=== PATIENT | female | born 1990 | race Caucasian/White ===

== ENCOUNTER → 2017-02-28 | Outpatient (REF) | payer OTHER | LOC: M SFHCWAGY 15:21 | PROVIDERS: ATTEND Family Medicine | DX: Z11.3 Encounter for screening for infections with a predominantly sexual mode of transmission (principal); Z12.4 Encounter for screening for malignant neoplasm of cervix; R87.615 Unsatisfactory cytologic smear of cervix | CPT/HCPCS: 87491; 87591; G0123 ==

== ENCOUNTER → 2017-07-08 | Outpatient (CLI) | payer OTHER ==
[2017-07-08 13:53] LABS: BASO % 0.3 % (0.0-1.0); EOS # 0.2 K/mm3 (0.0-0.50); EOS % 2.4 % (0.0-3.0); LARGE UNSTAINED CELL # 0.1 K/mm3 (0.0-0.4); LARGE UNSTAINED CELL % 1.8 % (0.0-4.0); LYMPH # 1.7 K/mm3 (1.5-6.5); LYMPH % 23.1 % (24.0-44.0); MEAN CORPUSCULAR HEMOGLOBIN 32.6 pg (27.0-33.0); MEAN CORPUSCULAR HGB CONC 34.4 g/dl (32.0-36.5); MEAN CORPUSCULAR VOLUME 94.8 fl (80.0-96.0); MONO # 0.4 K/mm3 (0.0-0.8); MONO % 6.2 % (0.0-5.0); NEUTROPHILS # 4.6 K/mm3 (1.8-7.7); NEUTROPHILS % 66.2 % (36.0-66.0); PLATELET COUNT, AUTOMATED 255 k/mm3 (150-450); RED CELL DISTRIBUTION WIDTH 12.3 % (11.5-14.5); WHITE BLOOD COUNT 6.9 K/mm3 (4.0-10.0)
[2017-07-09 11:26] LABS: HBsAg Prenatal NEGATIVE (NEGATIVE)
== END ==
LOC: M SMT 10:41
PROVIDERS: ATTEND Advanced Practice Midwife
DX: Z36 Encounter for antenatal screening of mother (principal); Z34.81 Encounter for supervision of other normal pregnancy, first trimester

== ENCOUNTER → 2017-12-10 | Outpatient (CLI) | payer OTHER ==
[2017-12-10 19:17] LABS: BASO % 0.2 % (0.0-1.0); EOS # 0.2 10^3/uL (0.0-0.50); EOS % 1.8 % (0.0-3.0); HEMATOCRIT 37.7 % (36.0-47.0); HEMOGLOBIN 12.7 g/dl (12.0-16.0); IMMATURE GRANULOCYTE % 0.3 % (0-0); LYMPH # 1.8 10^3/uL (1.5-6.5); LYMPH % 15.6 % (24.0-44.0); MEAN CORPUSCULAR HEMOGLOBIN 32.5 pg (27.0-33.0); MEAN CORPUSCULAR HGB CONC 33.7 g/dl (32.0-36.5); MEAN CORPUSCULAR VOLUME 96.4 fl (80.0-96.0); MONO # 0.7 10^3/uL (0.0-0.8); MONO % 6.3 % (0.0-5.0); NEUTROPHILS # 8.6 10^3/uL (1.8-7.7); NEUTROPHILS % 75.8 % (36.0-66.0); PLATELET COUNT, AUTOMATED 276 10^3/uL (150-450); RED BLOOD COUNT 3.91 10^6/uL (4.00-5.40); RED CELL DISTRIBUTION WIDTH 12.1 % (11.5-14.5); WHITE BLOOD COUNT 11.4 10^3/uL (4.0-10.0)
[2017-12-10 20:16] LABS: GLUCOSE CHALLENGE TEST 1 HOUR 110 MG/DL (LESS THAN 140)
== END ==
LOC: M SMT 13:15
DX: Z34.83 Encounter for supervision of other normal pregnancy, third trimester (principal); Z36.89 Encounter for other specified antenatal screening
CPT/HCPCS: 82950

== ENCOUNTER → 2018-01-01 | Outpatient (CLI) | payer OTHER | LOC: M SMT 14:41 | DX: O26.843 Uterine size-date discrepancy, third trimester (principal); Z3A.33 33 weeks gestation of pregnancy | CPT/HCPCS: 76815 ==

== ENCOUNTER → 2018-01-23 | Outpatient (REF) | payer OTHER | LOC: M LAB REF 16:58 | DX: Z34.83 Encounter for supervision of other normal pregnancy, third trimester (principal) ==

== ENCOUNTER 2018-02-23 09:57 | Inpatient (IN) | payer OTHER ==
[2018-02-23] MEDS: miSOPROStol 50 MCG 1/2 TAB (S0191) SL (11:24)
[2018-02-23 11:35] LABS: HEMATOCRIT 35.8 % (36.0-47.0); HEMOGLOBIN 12.5 g/dl (12.0-16.0); MEAN CORPUSCULAR HGB CONC 34.9 g/dl (32.0-36.5); MEAN CORPUSCULAR VOLUME 91.6 fl (80.0-96.0); PLATELET COUNT, AUTOMATED 238 10^3/uL (150-450); RED BLOOD COUNT 3.91 10^6/uL (4.00-5.40); RED CELL DISTRIBUTION WIDTH 12.5 % (11.5-14.5); WHITE BLOOD COUNT 9.3 10^3/uL (4.0-10.0)
[2018-02-23 11:55] LABS: AMPHETAMINES URINE REFLEX NEGATIVE (NEGATIVE); BARBITURATES URINE REFLEX NEGATIVE (NEGATIVE); BENZODIAZEPINES URINE REFLEX NEGATIVE (NEGATIVE); CANNABINOIDS URINE REFLEX NEGATIVE (NEGATIVE); COCAINE METABOLITE URINE REFLE NEGATIVE (NEGATIVE); METHADONE URINE REFLEX NEGATIVE (NEGATIVE); OPIATES URINE REFLEX NEGATIVE (NEGATIVE); PHENCYCLIDINE URINE REFLEX NEGATIVE (NEGATIVE)
[2018-02-23] MEDS ORDERED: FENTANYL 2MCG/ML ROPIVACAINE 0.2% IN 0.9% NACL 200ML IVBAG As Ordered (15:39)
[2018-02-23] MEDS ORDERED: LR 1,000 ML IV (16:12)
[2018-02-23] MEDS: LACTATED RINGER'S 1000 ML IV (16:12)
[2018-02-23] MEDS ORDERED: OXYTOCIN 30 UNITS IN 0.9% NaCl 500ML IV BAG (J2590) As Ordered (16:53)
[2018-02-23] MEDS ORDERED: ONDANSETRON 4MG/2ML VIAL (J2405) IV ×2 (18:30→19:15)
[2018-02-23] MEDS ORDERED: DOCUSATE SODIUM 100 MG CAP PO (18:30)
[2018-02-23] MEDS ORDERED: METHYLERGONOVINE MALEATE 0.2 MG TAB PO (18:30)
[2018-02-23] MEDS ORDERED: DIBUCAINE 1% OINTMENT 30GM TOP (18:30)
[2018-02-23] MEDS: OXYTOCIN DRIP 30 UNITS in APPROPRIATE DILUENT 1 EA IV (18:30)
[2018-02-23 18:38] LABS: CORD GAS ABE A -4.5; CORD GAS ABE V -4.9; CORD GAS HCO3 V 21.2 MEQ/L; CORD GAS O2 SAT A < 15.0 %; CORD GAS O2 SAT V 46.1 %; CORD GAS PCO2 A 64.6 mmHg; CORD GAS PCO2 V 42.9 mmHg; CORD GAS PH A 7.205 UNITS; CORD GAS PH V 7.312 UNITS; CORD GAS PO2 A < 10.0 mmHg; CORD GAS PO2 V 24.2 mmHg; CORD GAS SBC V 19.2 MEQ/L; CORD GAS TCO2 V 22.5 MEQ/L
[2018-02-23] MEDS ORDERED: ePHEDrine SULFATE 25 MG/5 ML(5MG/ML) SYRINGE IV (19:15)
[2018-02-23] MEDS ORDERED: EPIDURAL/PCA KEYS XX (19:15)
[2018-02-23] MEDS ORDERED: NALOXONE INJ 0.4 MG/1 ML VIAL (J2310) IV (19:15)
[2018-02-23] MEDS ORDERED: REFRIGERATOR IV KEYS XX (19:15)
[2018-02-23] MEDS ORDERED: LACTATED RINGER'S 1000 ML IV (19:15)
[2018-02-23] MEDS ORDERED: EPIDURAL COMMENT XX (19:15)
[2018-02-23] MEDS ORDERED: diphenhydrAMINE INJ 50MG/ML VIAL (J1200) IV (19:15)
[2018-02-23] MEDS: MEASLES,MUMPS,RUBELLA VACCINE INJ (MMR-II) (90707) SC (20:38)
[2018-02-23] MEDS: RHOGAM 300 MCG (1500 IU) INJ (J2790) IM (20:39)
[2018-02-23] MEDS: IBUPROFEN 800 MG TAB PO (20:45)
[2018-02-23] MEDS: FENTANYL/ROPIVACAINE/NACL BAG 200 ML EPIDURAL (20:52)
[2018-02-24] MEDS: ACETAMINOPHEN 500 MG TAB PO ×2 (01:04→22:06)
[2018-02-24] MEDS: PRENATAL VITAMINS CHEWABLE TABLET PO (09:00)
[2018-02-24] MEDS: IBUPROFEN 800 MG TAB PO ×2 (09:01→15:55)
[2018-02-25] MEDS: IBUPROFEN 800 MG TAB PO ×2 (05:21→13:08)
[2018-02-25] MEDS: ACETAMINOPHEN 500 MG TAB PO ×2 (05:21→13:08)
[2018-02-25] MEDS: PRENATAL VITAMINS CHEWABLE TABLET PO (09:06)
== END 2018-02-25 13:40 | disposition home or self-care (01) | DRG 775 ==
LOC: M LDI 09:57 → M OBS 20:21
PROVIDERS: Specialist
PROC: 10D07Z3 Extraction of Products of Conception, Low Forceps, Via Natural or Artificial Opening (ICD-10-PCS; principal; 2018-02-23)
PROC: 3E0P7GC Introduction of Other Therapeutic Substance into Female Reproductive, Via Natural or Artificial Opening (ICD-10-PCS; 2018-02-23)
PROC: 0KQM0ZZ Repair Perineum Muscle, Open Approach (ICD-10-PCS; 2018-02-25)
DX: O48.0 Post-term pregnancy (principal); Z3A.41 41 weeks gestation of pregnancy; O76 Abnormality in fetal heart rate and rhythm complicating labor and delivery; O69.81X0 Labor and delivery complicated by cord around neck, without compression, not applicable or unspecified; O70.1 Second degree perineal laceration during delivery; Z37.0 Single live birth

== ENCOUNTER 2018-02-26 13:50 | Emergency (ER) | payer OTHER ==
[2018-02-26 13:59] LABS: HEMOGLOBIN 12.6 g/dl (12.0-15.5); MEAN CORPUSCULAR HEMOGLOBIN 32.4 pg (27.0-33.0); MEAN CORPUSCULAR HGB CONC 34.1 g/dl (32.0-36.5); MEAN CORPUSCULAR VOLUME 95.1 fl (80.0-96.0); PLATELET COUNT, AUTOMATED 235 10^3/uL (150-450); RED BLOOD COUNT 3.89 10^6/uL (4.00-5.40); WHITE BLOOD COUNT 10.6 10^3/uL (4.0-10.0)
[2018-02-26] MEDS: NS 1,000 ML IV (14:06)
[2018-02-26] MEDS: diphenhydrAMINE INJ 50MG/ML VIAL (J1200) IV (14:06)
[2018-02-26] MEDS: METOCLOPRAMIDE INJ 10MG/2ML VIAL (J2765) IV (14:06)
[2018-02-26 14:22] LABS: ANION GAP 7 MEQ/L (8-16); BLOOD UREA NITROGEN 10 MG/DL (7-18); CALCIUM LEVEL 8.6 MG/DL (8.5-10.1); CARBON DIOXIDE LEVEL 25 MEQ/L (21-32); CHLORIDE LEVEL 110 MEQ/L (98-107); CREATININE FOR GFR 0.56 MG/DL (0.55-1.30); GLOMERULAR FILTRATION RATE > 60.0 (>60); GLUCOSE, FASTING 77 MG/DL (70-100); POTASSIUM SERUM 3.6 MEQ/L (3.5-5.1); SODIUM LEVEL 142 MEQ/L (136-145)
[2018-02-26] MEDS: PERCOCET 5MG/325MG TAB PO (15:07)
== END 2018-02-26 16:50 | disposition home or self-care (01) ==
LOC: M ED 13:50
DX: O89.4 Spinal and epidural anesthesia-induced headache during the puerperium (principal); Z79.899 Other long term (current) drug therapy
CPT/HCPCS: J1200

== ENCOUNTER 2018-02-26 17:01 | Outpatient (CLI) | payer OTHER | END 2018-02-26 20:05 | disposition home or self-care (01) | LOC: M RROUT 17:01 | DX: G97.0 Cerebrospinal fluid leak from spinal puncture (principal) | CPT/HCPCS: 62273 ==

== ENCOUNTER → 2018-06-19 | Outpatient (REF) | payer OTHER | LOC: M LAB REF 14:28 | DX: Z12.4 Encounter for screening for malignant neoplasm of cervix (principal) ==

== ENCOUNTER → 2020-10-10 | Outpatient (REF) | payer OTHER ==
[~2020-10-10] MED LIST: IBUP-1114 PO; MAPA500T2 PO; PRENTAB9 PO; TUMS500C PO; ZANTTAB9 PO
[2020-10-10 16:01] LABS: HEMATOCRIT 39.2 % (36.0-47.0); HEMOGLOBIN 12.9 g/dl (12.0-15.5); MEAN CORPUSCULAR HGB CONC 32.9 g/dl (32.0-36.5); MEAN CORPUSCULAR VOLUME 94.2 fl (80.0-96.0); PLATELET COUNT, AUTOMATED 273 10^3/uL (150-450); RED BLOOD COUNT 4.16 10^6/uL (4.00-5.40); WHITE BLOOD COUNT 9.1 10^3/uL (4.0-10.0)
[2020-10-10 17:19] LABS: HEPATITIS C VIRUS ABY INDEX 0.1 INDEX (<0.8); HIV 1&2 SCREEN CENTAUR NEGATIVE (NEGATIVE)
== END ==
LOC: M PLALAB 13:53
PROVIDERS: ATTEND Advanced Practice Midwife
DX: Z34.91 Encounter for supervision of normal pregnancy, unspecified, first trimester (principal)

== ENCOUNTER → 2020-12-12 | Outpatient (CLI) | payer OTHER ==
--- NOTE | 2020-12-12 20:52 | REP ---
INDICATION: ANATOMY COMPARISON: None. TECHNIQUE: Transabdominal obstetrical ultrasound with color Doppler evaluation. FINDINGS: Examination demonstrates a single live intrauterine in cephalic presentation. motion is identified by technologist. Placenta is noted posterior and grade 1 without evidence for placenta previa or abruption. Amniotic fluid volume is normal. Cervix measures 3.1 cm in length and appears closed.. Gestational age by current measurements 19 weeks 4 days with CAREY 05/04/2021. FHR equals 153 beats per minute. BPD: 4.3 cm 19 weeks 0 days HC: 16.3 cm 19 weeks 0 days AC: 14.5 cm 19 weeks 5 days FL: 3.3 cm 20 weeks 1 day HL: 3.0 cm there is 19 weeks 5 days HC/AC: 1.12 Estimated weight 316 grams (18thpercentile). Anatomical assessment demonstrates normal structures including cranium, choroid plexus, cavum, cerebellum/posterior fossa, facial features, lungs, diaphragm, stomach, cord insertion/three-vessel cord, kidneys/bladder, spine, and extremities. IMPRESSION: Single live intrauterine in cephalic presentation demonstrating appropriate estimated weight. Limited evaluation of the heart and ventricular outflow tracts due to positioning. Anatomical assessment is otherwise complete and normal. <Electronically signed by Chris Vinson > 12/12/20 [id number]
== END ==
LOC: M WHC 14:21
PROVIDERS: ATTEND Obstetrics & Gynecology
DX: Z34.82 Encounter for supervision of other normal pregnancy, second trimester (principal)

== ENCOUNTER → 2021-01-26 | Outpatient (CLI) | payer OTHER ==
--- NOTE | 2021-01-26 17:27 | REP ---
INDICATION: F/U ANATOMY. COMPARISON: Comparison study 12 December 2020.. TECHNIQUE: Transabdominal obstetric sonography. FINDINGS: Scanning through the gravid uterus demonstrates a viable single intrauterine gestation in breech lie. motion is observed and heart rate is recorded at 156 beats per minute. A posterior placenta is seen, grade 2, without evidence of placenta previa. Cervix is not well seen.. No extrauterine abnormality is observed. Amniotic fluid is subjectively decreased. STACIE 10.3 cm (9.522.6 cm (. An echogenic focus is again visualized within the left ventricle, likely chordee tract tendineae.. Biometry chart: BPD 5.9 cm, 24 weeks 1 day Head circumference 23.2 cm, 25 weeks 1 day Abdominal circumference 21.0 cm, 25 weeks 4 days Femur length 4.6 cm, 25 weeks 3 days Humeral length 4.4 cm, 26 weeks 1 day HC AC ratio normal 1.10 Cephalic index 0.69 (0.70-0.86) Estimated weight 804 g, 1 lb 12 oz, less than 3rd percentile for 26 weeks 6 days IMPRESSION: Viable single intrauterine gestation at 25 weeks 2 days by today's composite sonographic criteria. CAREY by today's sonography May 09, 2021. No complication identified. Expected gestational age estimate based on prior sonography is 26 weeks 6 days, CAREY April 28, 2021. Estimated weight less than 3rd percentile subjectively decreased amniotic fluid. <Electronically signed by Rick Cristina > 01/26/21 [id number]
== END ==
LOC: M WHC 14:51
PROVIDERS: ATTEND Obstetrics & Gynecology
DX: Z34.92 Encounter for supervision of normal pregnancy, unspecified, second trimester (principal); Z3A.25 25 weeks gestation of pregnancy

== ENCOUNTER → 2021-02-01 | Outpatient (REF) | payer OTHER ==
[2021-02-05 15:06] LABS: ANTI PARVO VIRUS LEVEL IGG 6.8 index (0.0-0.8); ANTI PARVO VIRUS LEVEL IgM 0.4 index (0.0-0.8); CYTOMEGALOVIRUS IgG ANTIBODY <0.60 U/mL (0.00-0.59); CYTOMEGALOVIRUS IgM ANTIBODY <30.0 AU/mL (0.0-29.9); HERPES ZOSTER, VARICELLA IgG 879 index (Immune >165); HERPES ZOSTER, VARICELLA IgM <0.91 index (0.00-0.90); HSV TYPE I IgG SPECIFIC <0.91 index (0.00-0.90); HSV TYPE I IgM AB <1:10 titer (<1:10); HSV TYPE II IgG SPECIFIC <0.91 index (0.00-0.90); HSV TYPE II IgM ABY <1:10 titer (<1:10); RUBELLA IgG FOR TORCH EVAL 2.47 index (Immune >0.99)
== END ==
LOC: M PLALAB 15:48
PROVIDERS: ATTEND Obstetrics & Gynecology
DX: O36.5920 Maternal care for other known or suspected poor fetal growth, second trimester, not applicable or unspecified (principal)

== ENCOUNTER → 2021-02-01 | Outpatient (CLI) | payer OTHER ==
--- NOTE | 2021-02-01 16:32 | REP ---
INDICATION: POOR GROWTH/BPP COMPARISON: 01/26/2021 TECHNIQUE: Transabdominal obstetrical ultrasound with color Doppler evaluation. FINDINGS: Examination demonstrates a single live intrauterine in breech presentation. motion is identified by technologist. Placenta is noted posterior and grade 2 without evidence for placenta previa or abruption. Amniotic fluid volume is normal. Cervix measures 3.9 cm in length and appears closed.. Gestational age by 1st ultrasound 27 weeks 5 days with CAREY 04/28/2021. FHR equals 167 beats per minute. STACIE: 12.2 cm (9.4-22.7) Biophysical profile score: 8/8 Umbilical artery 1 SD ratio: 2.71 (2.11-4.40) Umbilical artery 2 SD ratio: 2.47 IMPRESSION: Single live advanced gestation in breech presentation. Amniotic fluid volume and biophysical profile score are normal. <Electronically signed by Chris Vinson > 02/01/21 [id number]
== END ==
LOC: M WHC 15:05
PROVIDERS: ATTEND Obstetrics & Gynecology
DX: O36.5920 Maternal care for other known or suspected poor fetal growth, second trimester, not applicable or unspecified (principal); Z3A.27 27 weeks gestation of pregnancy

== ENCOUNTER → 2021-02-05 | Outpatient (CLI) | payer OTHER ==
--- NOTE | 2021-02-05 14:58 | REP ---
INDICATION: POOR GROWTH,BPP W/CORD DOPPLERS COMPARISON: 02/01/2021 TECHNIQUE: Transabdominal obstetrical ultrasound with color Doppler evaluation. FINDINGS: Examination demonstrates a single live intrauterine in breech presentation. motion is identified by technologist. Placenta is noted posterior and grade 2 without evidence for placenta previa or abruption. Amniotic fluid volume is normal. Cervix measures 3.6 cm in length and appears closed. Gestational age by LMP 28 weeks 2 days with CAREY 04/28/2021. STACIE: 13.9 cm (9.3-22.9) Biophysical profile score: 8/8 Umbilical artery 1 SD ratio: 2.71 (2.07-4.32) Umbilical artery 2 SD ratio: 3.26 (2.07-4.32) IMPRESSION: Single live gestation in breech presentation. Normal amniotic fluid volume, biophysical profile score, and umbilical artery Doppler interrogation. <Electronically signed by Chris Vinson > 02/05/21 [id number]
== END ==
LOC: M WHC 13:52
PROVIDERS: ATTEND Obstetrics & Gynecology
DX: O36.5920 Maternal care for other known or suspected poor fetal growth, second trimester, not applicable or unspecified (principal); Z3A.28 28 weeks gestation of pregnancy

== ENCOUNTER → 2021-02-06 | Outpatient (REF) | payer OTHER ==
[2021-02-06 17:26] LABS: HEMOGLOBIN 10.9 g/dl (12.0-15.5); MEAN CORPUSCULAR HEMOGLOBIN 32.2 pg (27.0-33.0); MEAN CORPUSCULAR VOLUME 97.3 fl (80.0-96.0); PLATELET COUNT, AUTOMATED 278 10^3/uL (150-450); RED BLOOD COUNT 3.39 10^6/uL (4.00-5.40); WHITE BLOOD COUNT 9.3 10^3/uL (4.0-10.0)
== END ==
LOC: M PLALAB 14:28
PROVIDERS: ATTEND Obstetrics & Gynecology
DX: Z34.92 Encounter for supervision of normal pregnancy, unspecified, second trimester (principal)

== ENCOUNTER → 2021-02-16 | Outpatient (CLI) | payer OTHER ==
--- NOTE | 2021-02-17 20:08 | REP ---
INDICATION: POOR GROWTH,BPP W/CORD DOPPLERS COMPARISON: 02/05/2021 TECHNIQUE: Transabdominal obstetrical ultrasound with color Doppler evaluation. FINDINGS: Examination demonstrates a single live intrauterine in cephalic presentation. motion is identified by technologist. Placenta is noted posterior and grade 2 without evidence for placenta previa or abruption. Amniotic fluid volume is normal. Cervix measures 3.9 cm in length and appears closed.. Gestational age by LMP and 1st ultrasound 29 weeks 6 days with CAREY 04/28/2021. Gestational age by current measurements 28 weeks 5 days with CAREY 05/06/2021. FHR equals 140 beats per minute. BPD: 7.0 cm at 28 weeks 2 days HC: 26.4 cm at 28 weeks 5 days AC: 23.7 cm at 28 weeks 0 days FL: 5.7 cm at 29 weeks 5 days HL: 4.9 cm at 28 weeks 5 days HC/AC: 1.11 Estimated weight 1261 grams (less than 3rd percentile based on age by 1st ultrasound). STACIE: 12.8 cm (9.0-23.4) Biophysical profile score: 8/8 Umbilical artery 1 SD ratio: 2.11 (1.97-4.12) Umbilical artery 2 SD ratio: 2.86 IMPRESSION: Single live intrauterine in cephalic presentation demonstrating less than expected interval growth. Amniotic fluid index and biophysical profile score are normal. <Electronically signed by Chris Vinson > 02/17/212003
== END ==
LOC: M WHC 14:25
PROVIDERS: ATTEND Obstetrics & Gynecology
DX: O36.5930 Maternal care for other known or suspected poor fetal growth, third trimester, not applicable or unspecified (principal); Z3A.28 28 weeks gestation of pregnancy

== ENCOUNTER → 2021-02-22 | Outpatient (CLI) | payer OTHER ==
--- NOTE | 2021-02-22 13:43 | REP ---
INDICATION: POOR GROWTH,BPP W/CORD DOPPLERS. COMPARISON: 02/16/2021. TECHNIQUE: Real-time sonographic evaluation of the gravid uterus performed. FINDINGS: Estimated gestational age is30 weeks 5 days, EDC 04/28/2021. Presentation: Cephalic Placenta the posterior, grade 2, without evidence of placenta previa. heart rate is recorded at 147 beats per minute. Amniotic fluid is subjectively normal. STACIE 12.1, normal 8.9-23.7. Biophysical profile score 8/8. SD ratio umbilical artery 2.32, normal range 1.92-4.01. RI 0.57, normal range 0.51-0.76. Closed cervical length is measured at 3.5 cm. IMPRESSION: Viable single intrauterine gestation as above. Biophysical profile score 8/8. <Electronically signed by Yfn Damon > 02/22/21 [id number]
== END ==
LOC: M WHC 12:53
PROVIDERS: ATTEND Obstetrics & Gynecology
DX: O36.5930 Maternal care for other known or suspected poor fetal growth, third trimester, not applicable or unspecified (principal); Z3A.30 30 weeks gestation of pregnancy

== ENCOUNTER → 2021-03-02 | Outpatient (CLI) | payer OTHER ==
--- NOTE | 2021-03-02 13:53 | REP ---
INDICATION: POOR GROWTH/BPP. COMPARISON: 02/22/2021, 02/16/2021, 02/05/2021 biophysical profile ultrasound TECHNIQUE: Standard follow-up Ob sonography with the growth the measurements and by visible profile. Umbilical artery Doppler also provided FINDINGS: Scanning demonstrates a viable single intrauterine gestation in a cephalic lie. motion is observed and heart rate is recorded at beats per minute. A posterior, grade II placenta is seen without evidence of previa. Amniotic fluid is subjectively normal. The STACIE is 12.5 cm (normal 8.6-24.1). Closed cervical length is measured at 3.3 cm transabdominally. No extrauterine abnormality is observed. No anatomic screening was requested or performed. Biometry chart: BPD 7.5 cm; 29 weeks 6 days Head circumference 28.5 cm; 31 weeks 2 days Abdominal circumference 27 cm; 31 weeks 0 days Femur length 5.9 cm; 30 weeks 4 days Humeral length 5.2 cm; 30 weeks 4 days HC/AC ratio normal 1.06 Cephalic index normal 0.71 Estimated weight 1641 grams, 3 pounds 10 ounces, 14th percentile for 31 weeks 6 days. Bowel visible profile: Breathing 2, tone 2, movement 2, AFV 2. IMPRESSION: Viable single intrauterine gestation at 30 weeks 5 days by today's composite sonographic criteria. Expected gestational age estimate based on prior sonography is 31 weeks is 6 days. CAREY by prior sonography 04/28/2021. Evaluation of the growth curve shows a slope of the growth curves maintained or slightly improved compared to the prior study. Bowel visible profile score: 8/8. <Electronically signed by Shelton Pinzon > 03/02/21 [id number]
== END ==
LOC: M WHC 10:50
PROVIDERS: ATTEND Obstetrics & Gynecology
DX: O36.5920 Maternal care for other known or suspected poor fetal growth, second trimester, not applicable or unspecified (principal); Z3A.30 30 weeks gestation of pregnancy

== ENCOUNTER → 2021-03-09 | Outpatient (CLI) | payer OTHER ==
--- NOTE | 2021-03-09 16:15 | REP ---
INDICATION: POOR GROWTH,BPP W/CORD DOPPLERS. COMPARISON: 03/02/2021. TECHNIQUE: Real-time sonographic evaluation of the gravid uterus performed. FINDINGS: Estimated gestational age is32 weeks 6 days, EDC 04/28/2021. Presentation: Cephalic Placenta posterior, grade 2, without evidence of placenta previa. heart rate is recorded at 147 beats per minute. Amniotic fluid is subjectively normal. STACIE 13.7, normal 8.3-24.5. Biophysical profile score 8/8. SD ratio umbilical artery 2.26, normal 1.80-3.78. RI 0.56, normal 0.48-0.74. Closed cervical length is measured at 3.3 cm. IMPRESSION: Viable single intrauterine gestation as above. <Electronically signed by Yfn Damon > 03/09/21 [id number]
== END ==
LOC: M WHC 14:21
PROVIDERS: ATTEND Obstetrics & Gynecology
DX: O36.5930 Maternal care for other known or suspected poor fetal growth, third trimester, not applicable or unspecified (principal); Z3A.36 36 weeks gestation of pregnancy

== ENCOUNTER → 2021-03-16 | Outpatient (CLI) | payer OTHER ==
--- NOTE | 2021-03-16 15:36 | REP ---
INDICATION: POOR GROWTH,BPP W/CORD DOPPLERS. TECHNIQUE: Transabdominal FINDINGS: Multiple ultrasonographic images of the gravid uterus shows a single living intrauterine gestation in the cephalic presentation. Doppler interrogation of the heart shows a heart rate of 144 beats per minute. The placenta is posterior and not low lying. Secondary to the low position of the head and neck root cervical length measurement could not be obtained. The subjective amniotic fluid volume is within normal limits. The calculated amniotic fluid index is 10.7 within expected range 8.1 to 24.8. biophysical profile score is 2 for breathing, 2 for tone, 2 for movement, and 2 for amniotic fluid volume giving a sum total of 8/8. BPD: 8.1 cm (32 weeks 3 days) HC: 29.8 cm (33 weeks 0 days) AC: 28.2 cm (32 weeks 2 days) FL: 6.4 cm (33 weeks 1 day) Doppler interrogation of the umbilical artery shows an AB ratio of 2.02. This is within the normal range. Estimated weight is 2006 g which is at the 13th percentile for a 33 week 6 day gestational age. IMPRESSION: Single living intrauterine gestation as described above with an estimated gestational age of 32 weeks 4 days via composite criteria and an estimated date of delivery of 05/07/2021 by today's exam. <Electronically signed by Luis Fernando Adams > 03/16/21 [id number]
== END ==
LOC: M WHC 14:24
PROVIDERS: ATTEND Obstetrics & Gynecology
DX: O36.5920 Maternal care for other known or suspected poor fetal growth, second trimester, not applicable or unspecified (principal)

== ENCOUNTER → 2021-03-23 | Outpatient (CLI) | payer OTHER ==
--- NOTE | 2021-03-23 15:40 | REP ---
INDICATION: BPP/CORD DOPPLERS. TECHNIQUE: Transabdominal.Multiple ultrasonographic images of the gravid uterus were obtained in a limited fashion to obtain above physical profile FINDINGS: Multiple ultrasonographic images of the gravid uterus shows a single living intrauterine gestation in the cephalic presentation. The placenta is posterior and not low-lying. The cervix measures 3.5 cm length and is closed. Doppler interrogation of the heart is a heart rate of 146 beats per minute. The subjective amniotic fluid volume is within normal limits. The calculated amniotic fluid index is 12.7 within expected range 7.9 to 24.9. Doppler interrogation of the umbilical artery shows an AB ratio of 2.42. This is within the normal range. biophysical profile score is 2 for breathing, 2 for tone, 2 for movement, and 2 for amniotic fluid volume giving a sum total of 8/8. IMPRESSION: Limited OB ultrasound as described above. <Electronically signed by Luis Fernando Adams > 03/23/21 0730
== END ==
LOC: M WHC 14:28
PROVIDERS: ATTEND Obstetrics & Gynecology
DX: Z36.89 Encounter for other specified antenatal screening (principal)

== ENCOUNTER → 2021-03-30 | Outpatient (CLI) | payer OTHER ==
--- NOTE | 2021-03-30 15:11 | REP ---
INDICATION: POOR GROWTH,BPP W/CORD DOPPLERS. COMPARISON: 03/23/2021. TECHNIQUE: Real-time sonographic evaluation of gravid uterus performed. FINDINGS: There is a single living intrauterine gestation, estimated gestational age 34 weeks 6 days, EDC 04/28/2021. position cephalic. Placenta posterior and grade 3. heart rate 146 beats per minute. Amniotic fluid within normal limits. STACIE 12.7, normal range 7.9-24.9. Biophysical profile score 8/8. SD ratio umbilical artery 2.42, normal 1.69-3.60. RI 0.59, normal 0.46-0.72. Cervix is closed and measures 3.5 cm in length. IMPRESSION: Biophysical profile score 8/8. <Electronically signed by Yfn Damon > 03/30/21 [id number]
== END ==
LOC: M WHC 14:30
PROVIDERS: ATTEND Obstetrics & Gynecology
DX: O36.5920 Maternal care for other known or suspected poor fetal growth, second trimester, not applicable or unspecified (principal)

== ENCOUNTER → 2021-04-03 | Outpatient (CLI) | payer OTHER ==
--- NOTE | 2021-04-03 11:44 | REP ---
INDICATION: POOR GROWTH/BPP/CORD DOPPLERS. Nonreactive NST. COMPARISON: Comparison study is from March 30, 2021.. TECHNIQUE: Limited obstetric sonography. Transabdominal scanning. FINDINGS: Scanning demonstrates a viable single intrauterine gestation in a cephalic lie. heart rate is recorded at 161 beats per minute. Posterior grade 3 placenta is seen without evidence of placenta previa. Amniotic fluid is subjectively normal. STACIE is normal at 8.7 cm. Biophysical profile score is 8 out of a possible 8. SD ratio in the umbilical cord artery by Doppler is normal at 1.70. Biometry chart: BPD 8.3 cm, 33 weeks 4 days Head circumference 30.6 cm, 34 weeks 1 day Abdominal circumference 31.2 cm, 35 weeks 1 day Femur length 6.9 cm, 35 weeks 4 days Humeral length 6.1 cm, 35 weeks 2 days HC AC ratio normal 0.98 Cephalic index normal 0.76 Estimated weight 2567 g, 5 lb 10 oz, 19th percentile for 36 weeks 3 days IMPRESSION: Viable single intrauterine gestation at 34 weeks 5 days by today's composite sonographic criteria. CAREY by today's sonography May 10, 2021. Expected gestational age estimate based on prior sonography is 36 weeks 3 days. CAREY by prior sonography April 28, 2021. Estimated weight in the 19th percentile for 36 weeks 3 days. <Electronically signed by Rick Cristina > 04/03/21 [id number]
== END ==
LOC: M WHC 10:22
PROVIDERS: ATTEND Obstetrics & Gynecology
DX: O36.5930 Maternal care for other known or suspected poor fetal growth, third trimester, not applicable or unspecified (principal); Z3A.34 34 weeks gestation of pregnancy

== ENCOUNTER → 2021-04-03 | Outpatient (REF) | payer OTHER | LOC: M SFHCWAGY 10:59 | PROVIDERS: ATTEND Obstetrics & Gynecology | DX: O36.5930 Maternal care for other known or suspected poor fetal growth, third trimester, not applicable or unspecified (principal) ==

== ENCOUNTER → 2021-04-13 | Outpatient (CLI) | payer OTHER ==
--- NOTE | 2021-04-15 07:22 | REP ---
INDICATION: BPP/CORD DOPPLERS COMPARISON: 04/03/2021 TECHNIQUE: Transabdominal obstetrical ultrasound with color Doppler evaluation. FINDINGS: Examination demonstrates a single live intrauterine in cephalic presentation. motion is identified by technologist. Placenta is noted posterior and grade 3 without evidence for placenta previa or abruption. Amniotic fluid volume is normal. Cervix measures 3.6 cm in length and appears closed. STACIE: 10.3 cm Biophysical profile score: 8/8 Umbilical artery 1 SD ratio: 1.93 (1.56-3.37) Umbilical artery 2 SD ratio: 2.11. IMPRESSION: Single live intrauterine in cephalic presentation. Amniotic fluid volume and biophysical profile score are normal. <Electronically signed by Chris Vinson > 04/15/21 0716
== END ==
LOC: M WHC 14:33
PROVIDERS: ATTEND Obstetrics & Gynecology
DX: O36.5920 Maternal care for other known or suspected poor fetal growth, second trimester, not applicable or unspecified (principal)

== ENCOUNTER → 2021-04-14 | Outpatient (CLI) | payer OTHER | LOC: M LABSMTC 10:18 | PROVIDERS: ATTEND Specialist | DX: Z11.52 Encounter for screening for COVID-19 (principal) ==

== ENCOUNTER → 2021-04-20 | Outpatient (CLI) | payer OTHER ==
[~2021-04-20] MED LIST changes: +ACET-683 PO; +IBUP80TA PO; +PEPC1TAB5 PO
--- NOTE | 2021-04-20 16:48 | REP ---
INDICATION: GROWTH DOPPLER VELOCIMETRY. TECHNIQUE: Transabdominal FINDINGS: Multiple ultrasonographic images of the gravid uterus shows a single living intrauterine gestation in the cephalic presentation. Doppler interrogation of the heart shows a heart rate of 135 beats per minute. Doppler interrogation of the umbilical artery shows an AB ratio of 1.75. This is within the normal range. Additional umbilical Doppler was obtained showing an AB ratio of 2.11 and still within the normal range. The cervix measures 3.2 cm in length and is closed. The placenta is posterior and not low-lying. The subjective amniotic fluid volume is within normal limits. The calculated amniotic fluid index is 8.6 with an expected range 7.2 to 22.8. BPD: 8.7 cm 35 weeks 1 day HC: 33.4 cm 38 weeks 1 day AC: 32.4 cm 36 weeks 2 days FL: 7.0 cm 35 weeks 6 days The estimated weight is 2889 g which is at the 12th percentile for a 38 week 1 day gestational age. IMPRESSION: Single living intrauterine gestation as described above with an estimated gestational age of 36 weeks 2 days via composite criteria and an estimated date of delivery of 05/16/2021 by today's exam. <Electronically signed by Luis Fernando Adams > 04/20/21 [id number]
== END ==
LOC: M WHC 14:30
PROVIDERS: ATTEND Obstetrics & Gynecology
DX: O36.5920 Maternal care for other known or suspected poor fetal growth, second trimester, not applicable or unspecified (principal)

== ENCOUNTER 2021-04-21 07:34 | Inpatient (IN) | payer OTHER ==
[2021-04-21] VITALS (9 sets, daily range): BP systolic 115–140; BP diastolic 70–91
[~2021-04-21] VITALS: Ht 167.6 cm; Wt 88.7 kg
[~2021-04-21 07:34] MED LIST changes: -ACET-683 PO; -IBUP80TA PO; -PEPC1TAB5 PO
[2021-04-21] MEDS ORDERED: LACTATED RINGER'S 1000 ML IV STA (07:47)
[2021-04-21] MEDS ORDERED: OXYTOCIN DRIP 30 UNITS in IV 1 EA IV PRN (07:50)
[2021-04-21] MEDS ORDERED: LIDOCAINE 1% MDV 20ML VIAL INFIL PRN (07:50)
[2021-04-21] MEDS ORDERED: METHYLERGONOVINE MALEATE 0.2 MG/ML VIAL (J2210) IM PRN (07:50)
[2021-04-21 08:33] LABS: HEMATOCRIT 29.8 % (36.0-47.0); HEMOGLOBIN 9.9 g/dl (12.0-15.5); MEAN CORPUSCULAR HEMOGLOBIN 30.9 pg (27.0-33.0); MEAN CORPUSCULAR HGB CONC 33.2 g/dl (32.0-36.5); MEAN CORPUSCULAR VOLUME 93.1 fl (80.0-96.0); PLATELET COUNT, AUTOMATED 255 10^3/uL (150-450); WHITE BLOOD COUNT 7.8 10^3/uL (4.0-10.0)
--- NOTE | 2021-04-21 09:08 | HPEPDOC ---
Obstetrical History & Physical General Date of Admission April 21, 2021 at 07:34 History of Present Illness 30 yo female at 39 0/7 weeks gestation by LMP c/w 11 week ultrasound (EDC=04/28/2021) presents for induction of labor. no contractions. good movement. Chief Complaint: Induction of labor Age: 30 : 2 Term: 1 Pre-term: 0 Abortions: 0 Livin Care Care: Good Care Dating Final EDC by: LMP, 1st trimester (US) Antepartum Course Diagnos(e)s IUGR early one; resolved on subsequent ultrasounds Past Medical History Past Obstetrical History : Past Obstetrical History: Multigravida Past Medical History Medical History ob hx: 41+ week forceps delivery 6# 14 oz Surgical History: Denies/None Family History Significant Family History: No pertinent family hx Social History Marital Status: Family situation: Spouse/partner home Psychosocial History: No pertinent psych hx Allergies Coded Allergies: No Known Allergies (Unverified , 02/23/18) Medications Scheduled No.137/Iron/Folic Acd ( Vitamin Tablet) 1 Tab Tab, 1 TAB PO DAILY Ranitidine HCl (Zantac 75) 75 Mg Tab, 1 TAB PO BID Scheduled PRN Acetaminophen (Mapap) 500 Mg Tab, 1,000 MG PO Q6HP PRN for PAIN Calcium Carbonate (Tums) 500 Mg Chw, 500 MG PO for INDIGESTION Ibuprofen (Ibuprofen) 400 Mg Tab, 800 MG PO Q8HP PRN for PAIN Physical Examination Physical Examination GENERAL: Alert and oriented times three. BREAST: . ABDOMEN: Gravid and non-tender to touch. FETUS: Is vertex (VTX) by sterile vaginal examination (SVE), fetus is vertex (VTX) by Jesse. HEART RATE: Regular rate and rhythm. LUNGS: Clear to auscultation (CTA). EXTREMITIES: No edema. No clonus. Deep tendon reflexes (DTRs) + . Laboratory Data 24H LABS Laboratory Tests 2 04/21/21 08:04: Serology Scanned Report Hepatitis B Testing 04/21/21 08:22: Nucleated Red Blood Cells % (auto) 0.0 CBC/BMP Laboratory Tests 04/21/21 08:22 Pertinent Laboratoy Data Blood Type: A+ Group B Streptococcus: Negative Vaginal Examination Dilation: 1cm Effacement: 50% Station: -2 Cervical Consistency: Soft Cervical Position: Posterior Presentation: Cephalic presentation Assessment Variability: Moderate Accelerations: Positive Decelerations: None Tocometer Contractions: No Assessment/Plan Assessment Pt is a 30-year-old (G)2 para (P)1-0-0-1 at 39+0 weeks by LMP c/w 11- week ultrasound presents to Labor and Delivery for induction. Plan Admit and orient. Cardiac Monitor Technician and consent. Diet: regular. Group B Streptococcus (GBS) negative. Labs and intravenous (IV) per unit protocol. Misoprostol to initiate induction Anticipate normal spontaneous delivery (). C-S as appropriate. SEDA REED MD April 21, 2021 09:08
[2021-04-21] MEDS: miSOPROStol 50MCG 1/2 TABLET PO SCH ×4 (09:27→21:21)
[2021-04-21] MEDS ORDERED: PEPC1TAB5 PO (09:41)
[2021-04-21] MEDS ORDERED: OXYTOCIN DRIP 30 UNITS in IV 1 EA IV SCH (21:55)
[2021-04-21] MEDS ORDERED: LR 1,000 ML IV SCH (21:55)
[2021-04-21] MEDS ORDERED: BUTORPHANOL 2 MG/ML INJ (J0595) IV ONE (23:35)
[2021-04-21] MEDS ORDERED: PROMETHAZINE INJ 25 MG/ML VIAL (J2550) IV ONE (23:35)
[2021-04-22] VITALS (13 sets, daily range): BP systolic 112–157; BP diastolic 65–82
[2021-04-22] MEDS ORDERED: FENTANYL 2MCG/ML ROPIVACAINE 0.2% IN 0.9% NACL 100ML IVBAG As Ordered ONE (03:25)
[2021-04-22] MEDS ORDERED: REFRIGERATOR IV KEYS XX PRN (03:30)
[2021-04-22] MEDS ORDERED: diphenhydrAMINE 50MG/ML VIAL (J1200) IV PRN (03:30)
[2021-04-22] MEDS ORDERED: EPIDURAL/PCA KEYS XX PRN (03:30)
[2021-04-22] MEDS ORDERED: NALOXONE INJ 0.4MG/1ML VIAL (J2310 PER 1MG) IV PRN (03:30)
[2021-04-22] MEDS ORDERED: EPIDURAL COMMENT XX SCH (03:30)
[2021-04-22] MEDS ORDERED: ONDANSETRON 4MG/2ML VIAL IV PRN ×2 (03:30→04:30)
[2021-04-22] MEDS ORDERED: FENTANYL/ROPIVACAINE/NACL BAG 100 ML EPIDURAL SCH (03:30)
[2021-04-22] MEDS ORDERED: DOCUSATE SODIUM 100MG CAPSULE PO PRN (04:30)
[2021-04-22] MEDS ORDERED: LIDOCAINE 1% MDV 20ML VIAL INFIL ONE (04:30)
[2021-04-22] MEDS ORDERED: IBUPROFEN 600MG TAB PO PRN (04:30)
[2021-04-22] MEDS ORDERED: MEASLES,MUMPS,RUBELLA VACCINE INJ (MMR-II) (90707) SC SCH (04:30)
[2021-04-22] MEDS ORDERED: OXYTOCIN DRIP 30 UNITS in IV 1 EA IV ONE (04:30)
[2021-04-22] MEDS ORDERED: RHOGAM 300 MCG (1500 IU) INJ (J2790) IM SCH (04:30)
[2021-04-22] MEDS ORDERED: DIBUCAINE 1% OINTMENT 30GM TOP PRN (04:30)
[2021-04-22] MEDS ORDERED: ACETAMINOPHEN TAB 650MG DOSE (2X325MG) PO PRN (04:30)
[2021-04-22] MEDS ORDERED: METHYLERGONOVINE MALEATE 0.2 MG TAB PO PRN (04:30)
[2021-04-22] MEDS ORDERED: ACETAMINOPHEN 500 MG TAB PO PRN (04:30)
--- NOTE | 2021-04-22 04:41 | DNPDOC ---
[facility] Delivery Note Delivery Note DATE OF DELIVERY: April 22, 2021 PREDELIVERY DIAGNOSIS: 39-0/7 weeks' gestation, induction. POST DELIVERY DIAGNOSIS: Delivered. PROCEDURE: Spontaneous vaginal delivery. ASSISTANT FOOTBALL COACH: Dr. Seda Reed MD ANESTHESIA: none. ESTIMATED BLOOD LOSS: 300 mL. FINDINGS: 6 pound 2 ounce female , Score 8/9, nuchal cord times 1. DELIVERY SUMMARY: Patient is a 30-year-old 2 now para 2 who was admitted to labor and delivery for induction. She received 3 doses of Misoprostol. She then had a precipitous spontaneous vaginal delivery of 6 lb. 2 oz. female with no delivery anesthesia. Nuchal cord x 1 reduced manually. Placenta delivered spontaneously and appeared intact. Pt received IV Pitocin immediately after delivery of the placenta. A second degree perineal laceration was repaired with 2-O Chromic under local anesthesia in the usual fashion. Sponge and needle counts correct. SEDA REED MD April 22, 2021 04:41
[2021-04-22] MEDS: PRENATAL VITAMINS CHEWABLE TABLET PO SCH (08:03)
[2021-04-22] MEDS: IBUPROFEN 800 MG TAB PO PRN (11:56)
[2021-04-23] MEDS: IBUPROFEN 800 MG TAB PO PRN (04:03)
[2021-04-23 05:56] VITALS: BP 117/69
[2021-04-23] MEDS ORDERED: ACET-683 PO (07:22)
[2021-04-23] MEDS ORDERED: IBUP80TA PO (07:22)
[2021-04-23] MEDS: PRENATAL VITAMINS CHEWABLE TABLET PO SCH (09:27)
== END 2021-04-23 13:06 | disposition home or self-care (01) | DRG 807 ==
LOC: M LDI 07:34 → M OBS 04-22 09:03
PROVIDERS: ADMIT Specialist; ATTEND Specialist
PROC: 3E0P7GC Introduction of Other Therapeutic Substance into Female Reproductive, Via Natural or Artificial Opening (ICD-10-PCS; 2021-04-21)
PROC: 10E0XZZ Delivery of Products of Conception, External Approach (ICD-10-PCS; principal; 2021-04-22)
PROC: 0KQM0ZZ Repair Perineum Muscle, Open Approach (ICD-10-PCS; 2021-04-22)
DX: O62.3 Precipitate labor (principal); Z37.0 Single live birth; Z3A.39 39 weeks gestation of pregnancy; O69.81X0 Labor and delivery complicated by cord around neck, without compression, not applicable or unspecified; O70.1 Second degree perineal laceration during delivery